=== PATIENT | male | born 1985 | race Caucasian/White ===

== ENCOUNTER 2018-03-15 15:26 | Emergency (ER) | payer OTHER, MEDICAID ==
[~2018-03-15] VITALS: Ht 167.6 cm; Wt 63.5 kg
--- NOTE | 2018-03-15 15:33 | NUR ---
DR SHIN AT BEDSIDE FOR EVAL.
[2018-03-15] MEDS ORDERED: LORAZEPAM INJ 2 MG/ML VIAL ONE (15:38)
--- NOTE | 2018-03-15 15:44 | NUR ---
PT TO RADIOLOGY FOR HEAD CT SCAN VIA [facility]
[2018-03-15] MEDS ORDERED: LORAZEPAM INJ 2 MG/ML VIAL IM ONE (16:00)
--- NOTE | 2018-03-15 16:53 | NUR ---
MEDICALLY CLEARED. D/C TO SALESPERSON BURIAL NEEDS IN STABLE CONDITION.
[2018-03-15 17:10] VITALS: BP 112/72
== END 2018-03-15 16:53 ==
LOC: ER 15:27
DX: R56.9 Unspecified convulsions (principal); F13.20 Sedative, hypnotic or anxiolytic dependence, uncomplicated; Z86.19 Personal history of other infectious and parasitic diseases; Z60.2 Problems related to living alone
CPT/HCPCS: 70450; 96372; 99284; A4606; J2060

== ENCOUNTER 2018-09-02 09:42 | Emergency (ER) | payer OTHER, MEDICAID ==
[~2018-09-02] VITALS: Ht 165.1 cm; Wt 69.9 kg
--- NOTE | 2018-09-02 09:50 | NUR ---
[id number] AND [employer], IN CUSTODY, HAD AN UNWITNESS SEIZURE, BS 105 Hx ALCOHOLIC, HAVEN'T DRINK FOR A WEEK NOW. ALERT NAD ORIENTED X3, BREATHING EVEN AND UNALBORED WITH NO DISTRESS NOTED. SKIN INTACT AND WARM TO TOUCH. AWAITING TO BE SEEN BY
[2018-09-02] MEDS ORDERED: CHLORDIAZEPOXIDE HCL 25 MG CAPSULE ONE (09:53)
[2018-09-02] MEDS ORDERED: CHLORDIAZEPOXIDE HCL 25 MG CAPSULE PO ONE (10:00)
--- NOTE | 2018-09-02 10:16 | NUR ---
Patient discharged to home in stable condition. Written and verbal after care instructions given. Patient verbalizes understanding of instruction.
[2018-09-02 10:19] VITALS: BP 122/74
== END 2018-09-02 10:20 ==
LOC: ER 09:45
DX: F10.239 Alcohol dependence with withdrawal, unspecified (principal); R56.9 Unspecified convulsions; Y90.9 Presence of alcohol in blood, level not specified; Z86.19 Personal history of other infectious and parasitic diseases; Z60.2 Problems related to living alone